=== PATIENT | male | born 1965 | race Caucasian/White ===

== ENCOUNTER 2017-09-06 14:15 | Emergency (ER) | payer OTHER ==
[~2017-09-06] VITALS: Ht 185.4 cm; Wt 98.0 kg
[2017-09-06 14:15] VITALS: TEMP 36.9; Ht 185.4 cm; Wt 98.0 kg
[2017-09-06 14:25] VITALS: O2SAT 96
[2017-09-06] MEDS ORDERED: SODIUM CHLORIDE 0.9% 1000ML 1,000 ML IV STA (14:30)
[2017-09-06] MEDS ORDERED: IBUP-103 PO (14:33)
--- NOTE | 2017-09-06 14:36 | EMERGENCY ROOM VISIT NOTE ---
History First contact with patient: 14:20 Chief Complaint: DIZZY Stated Complaint: DIZZINESS Nursing Triage Summary: Patient arrived via ALS from [facility]. Patient started feeling dizzy yesterday while driving from [place] to [place]. Patient states experienced dizziness when out of car, at rest stops during trip and dizziness got worse with each stop. Patient continued to experience dizziness and lightheadedness last night and into today. Patient c/o associated nausea, sweating, numbness across forehead, and pain in left shoulder/back. History of Present Illness The patient is a 52 year old male who presents to the Emergency Room via ambulance with complaints of "dizziness". The patient states that he was driving yesterday from [facility], and when he sat back in his car seat he felt imbalanced. He did be Driving, and somewhere around [facility] as driving north to this area he states every time he got in and out of his car he felt as if he was becoming more more dizzy. He describes it as almost as if he is going to pass out. He denies any vertigo-like symptoms. He states that he suffered his mother's place last night set of his own, we will Use more and more imbalanced, and unsteady. He states that while ascending one flight of steps he became lightheaded, diaphoretic and very weak. He also feels a numbness sensation by his synagogue region. He denies any unilateral weakness. He denies any chest pain, shortness of breath, history of CVA. He has elevated triglycerides. He denies any medical problems. Review of Systems A complete 10-point Review of Systems was discussed with the patient, with pertinent positives and negatives listed in the History of Present Illness. All remaining Review of Systems questions can be considered negative unless otherwise specified. Past Medical/Surgical History Elevated triglycerides Family History No pertinent. Social History Smoking Status: Never Smoker Patient lives locally. Current/Historical Medications Scheduled Ibuprofen Tab (Advil), 200-600 MG PO Q4H Scheduled PRN Lorazepam (Ativan), 1 TAB PO Q6H PRN for Dizziness or Vertigo Meclizine Hcl (Meclizine Hcl), 1 TAB PO TID PRN for Dizziness or Vertigo Physical Exam Vital Signs Date Time Temp Pulse Resp B/P (MAP) Pulse Ox O2 Delivery O2 Flow Rate FiO2 09/06/17 19:21 71 09/06/17 19:21 72 18 123/84 96 Room Air 09/06/17 18:30 77 18 123/94 96 Room Air 09/06/17 16:23 67 18 121/85 96 Room Air 09/06/17 14:46 74 16 117/78 95 Room Air 78 140/80 84 129/91 09/06/17 14:25 96 Room Air 09/06/17 14:21 71 09/06/17 14:15 36.9 70 18 134/88 96 Room Air Physical Exam VITAL SIGNS - Vital signs and nursing notes were reviewed. Stable. GENERAL -52-year-old male appearing his stated age who is in no acute distress. Communicates well with provider and answers questions appropriately. SKIN - Without rashes. HEAD - NC/AT. EYES - PERRL with EOMI bilaterally. Sclera anicteric. No hyphema. EARS - No deformities of external structures noted on gross examination bilaterally. No pain elicited with palpation of the tragus bilaterally. External auditory canals without discharge or otorrhea. Tympanic membranes pearly cantu without retraction or bulging. No fluid or purulent material visualized behind the TM. Handle of malleus, umbo, cone of light, pars tensa/ flaccid all easily visualized. NOSE - Midline and without cyanosis. No epistaxis or purulent drainage noted. Septum midline without deviation or septal hematoma noted. MOUTH/OROPHARYNX - Without perioral cyanosis. Buccal mucosa pink and moist and without leukoplakia. Tongue midline with equal elevation of palate bilaterally. No tonsillar hypertrophy, erythema, or exudates noted. Fair dentition noted. NECK - Neck with FROM. Supple to palpation. No lymphadenopathy noted. No nuchal rigidity. LUNGS - Chest wall symmetric without accessory muscle use, intercostals retractions, or central cyanosis. Normal vesicular breath sounds CTA B/L. No wheezes, rales, or rhonchi appreciated. CARDIAC - RRR with S1/S2. No murmur, rubs, or gallops appreciated. EXTREMITIES - No clubbing or peripheral cyanosis. No pretibial edema present. + 5/5 strength noted in UE/LE bilaterally. NEUROLOGIC - Cranial nerves II through XII grossly intact. Sensory intact to light touch throughout. PSYCH - A&Ox3 and cooperates fully with examiner. Pt is very pleasant and interacts well with examiner. Medical Decision & Procedures ER Provider Diagnostic Interpretation: ORBIT RADIOGRAPHS 3 VIEWS HISTORY: pre-MRI screening. COMPARISON: None. FINDINGS: There are no radiopaque foreign bodies identified within the orbits. Incidental noted is made of multiple dental amalgams. IMPRESSION: No radiopaque foreign bodies identified within the orbits. Electronically signed by: Yasmani Messina M.D. 09/06/2017 5:22 PM Dictated Date/Time: 09/06/2017 5:22 PM SINGLE VIEW CHEST CLINICAL HISTORY: Dizziness. FINDINGS: An AP, portable, upright chest radiograph is obtained. No prior studies are available for comparison at the time of dictation. The examination is degraded by portable technique and patient rotation. The cardiomediastinal silhouette is unremarkable. There is mild elevation of the right hemidiaphragm. The lungs and pleural spaces are clear. No pneumothorax is seen. The bony thorax is grossly intact. IMPRESSION: No active disease in the chest. Electronically signed by: Wilfred Carlson M.D. 09/06/2017 2:45 PM Dictated Date/Time: 09/06/2017 2:44 PM ULTRASOUND OF THE CAROTID ARTERIES CLINICAL HISTORY: Dizziness, left temporal numbness, weakness. Diaphoresis. COMPARISON STUDY: None. TECHNIQUE: Real-time, grayscale, and color Doppler sonography of the carotid arteries was performed. Imaging reviewed in the transverse and longitudinal planes. NASCET criteria was utilized for stenosis calcification. FINDINGS: There is minimal atherosclerotic plaque present . The peak systolic velocity within the right internal carotid artery is 87 cm/sec. The systolic velocity ratio of right internal to common carotid artery is 0.5. The peak systolic velocity within the left internal carotid artery is 65 cm/sec. The systolic velocity ratio left internal to common carotid artery is 0.6. Antegrade flow is seen in the vertebral arteries. The external carotid arteries are patent. Blood pressure in the right arm measured 122 mm/Hg. Blood pressure in the left arm measured 817 mm/Hg. IMPRESSION: No evidence of hemodynamically significant carotid stenosis. Electronically signed by: Oni Mercer M.D. 09/06/2017 5:21 PM Dictated Date/Time: 09/06/2017 5:20 PM Laboratory Results 09/06/17 14:15 Red Blood Count 5.44, Mean Corpuscular Volume 84.6, Mean Corpuscular Hemoglobin 30.0, Mean Corpuscular Hemoglobin Concent 35.4, Mean Platelet Volume 9.5, Neutrophils (%) (Auto) 63.5, Lymphocytes (%) (Auto) 21.5, Monocytes (%) (Auto) 12.5, Eosinophils (%) (Auto) 1.6, Basophils (%) (Auto) 0.5, Neutrophils # (Auto ) 4.81, Lymphocytes # (Auto) 1.63, Monocytes # (Auto) 0.95, Eosinophils # (Auto ) 0.12, Basophils # (Auto) 0.04 09/06/17 14:15 Test 09/06/17 14:15 09/06/17 16:27 White Blood Count 7.58 K/uL (4.8-10.8) Red Blood Count 5.44 M/uL (4.7-6.1) Hemoglobin 16.3 g/dL (14.0-18.0) Hematocrit 46.0 % (42-52) Mean Corpuscular Volume 84.6 fL (80-100) Mean Corpuscular Hemoglobin 30.0 pg (25-34) Mean Corpuscular Hemoglobin Concent 35.4 g/dl (32-36) Platelet Count 268 K/uL (130-400) Mean Platelet Volume 9.5 fL (7.4-10.4) Neutrophils (%) (Auto) 63.5 % Lymphocytes (%) (Auto) 21.5 % Monocytes (%) (Auto) 12.5 % Eosinophils (%) (Auto) 1.6 % Basophils (%) (Auto) 0.5 % Neutrophils # (Auto) 4.81 K/uL (1.4-6.5) Lymphocytes # (Auto) 1.63 K/uL (1.2-3.4) Monocytes # (Auto) 0.95 K/uL (0.11-0.59) Eosinophils # (Auto) 0.12 K/uL (0-0.5) Basophils # (Auto) 0.04 K/uL (0-0.2) RDW Standard Deviation 37.4 fL (36.4-46.3) RDW Coefficient of Variation 12.4 % (11.5-14.5) Immature Granulocyte % (Auto) 0.4 % Immature Granulocyte # (Auto) 0.03 K/uL (0.00-0.02) Prothrombin Time 10.4 SECONDS (9.0-12.0) Prothromb Time International Ratio 1.0 (0.9-1.1) Activated Partial Thromboplast Time 22.7 SECONDS (21.0-31.0) Partial Thromboplastin Ratio 0.9 Anion Gap 9.0 mmol/L (3-11) Est Creatinine Clear Calc Drug Dose 99.0 ml/min Estimated GFR () 90.2 Estimated GFR (Non- 77.9 BUN/Creatinine Ratio 11.8 (10-20) Calcium Level 9.5 mg/dl (8.5-10.1) Magnesium Level 2.1 mg/dl (1.8-2.4) Total Bilirubin 2.8 mg/dl (0.2-1) Aspartate Amino Transf (AST/SGOT) 19 U/L (15-37) Alanine Aminotransferase (ALT/SGPT) 41 U/L (12-78) Alkaline Phosphatase 79 U/L (45-117) Total Creatine Kinase 92 U/L (39-308) Creatine Kinase MB 1.0 ng/ml (0.5-3.6) Creatine Kinase MB Ratio 1.1 (0-3.0) Troponin I < 0.015 ng/ml (0-0.045) C-Reactive Protein < 0.29 mg/dl (0-0.29) Total Protein 7.4 gm/dl (6.4-8.2) Albumin 4.1 gm/dl (3.4-5.0) Globulin 3.3 gm/dl (2.5-4.0) Albumin/Globulin Ratio 1.2 (0.9-2) Thyroid Stimulating Hormone (TSH) 0.443 uIu/ml (0.300-4.500) Lyme Disease IgG Antibody NEG (NEG) Lyme Disease IgM Antibody NEG (NEG) Urine Color YELLOW Urine Appearance CLEAR (CLEAR) Urine pH 6.5 (4.5-7.5) Urine Specific [place] 1.015 (1.000-1.030) Urine Protein NEG (NEG) Urine Glucose (UA) NEG (NEG) Urine Ketones NEG (NEG) Urine Occult Blood NEG (NEG) Urine Nitrite NEG (NEG) Urine Bilirubin NEG (NEG) Urine Urobilinogen NEG (NEG) Urine Leukocyte Esterase NEG (NEG) Urine Opiates Screen NEG (NEG) Urine Methadone, Qualitative NEG (NEG) Urine Barbiturates NEG (NEG) Urine Phencyclidine (PCP) Level NEG (NEG) Ur Amphetamine/Methamphetamine NEG (NEG) MDMA (Ecstasy) Screen NEG (NEG) Urine Benzodiazepines Screen NEG (NEG) Urine Cocaine Metabolite NEG (NEG) Urine Marijuana (THC) NEG (NEG) Medications Administered Medications (Trade) Dose Ordered Sig/Jeovanny Route Start Time Stop Time Status Last Admin Dose Admin Sodium Chloride 1,000 ml @ 999 mls/hr Q1H1M STAT IV 09/06/17 14:30 09/06/17 15:34 DC 09/06/17 14:40 999 MLS/HR Medical Decision Patient was seen and evaluated as above. He presents to us today with exertional dizziness, and numbness on the left ear/head region. It is worse with movements of the head and neck. Decision was made to obtain IV access, and the above workup was performed. Carotid ultrasound brain MRI were initiated and essentially revealed no abnormalities. CBC reveals NO concerning leukocytosis or anemia. Coag unremarkable. Patient's metabolic panel reveals creatinine at 1.1, and BUN 13. Troponin and C-reactive protein are negative. EKG reveals what is suspected to be a first-degree AV block. TSH unremarkable. Urine is negative. Urine drug screen is negative. Lyme screen is negative. Case was discussed with the attending physician. He was given 1 L of normal saline. We felt pt. should be admitted for further evaluation and management. I then elected to consult the admission team, as I felt the patient would benefit from inpatient management. I spoke with Dr. Gonzalez. He agreed to evaluate the patient. It was identified that he performed a [place]-Hallpike maneuver with some success. He felt pt. could go home but return if persistent or worse. He'll be given a short course of Ativan as well as meclizine. He is to return with worsening. He was educated upon management, educated upon worrisome symptoms which to return, had rushes by discharge, and was discharged home in good condition. He is fo f/u with PCP for ekg, and creatinine/dizziness. In evaluation treatment this patient following differential diagnoses were entertained: CVA, vertigo, dissection, among others. Impression Primary Impression: Vertigo Departure Information Dispostion Home / Self-Care Condition GOOD Prescriptions Meclizine Hcl (MECLIZINE HCL) 25 Mg Tab 1 TAB PO TID Y for Dizziness or Vertigo for 10 Days, #30 TAB Prov: Marquise Suazo PA-C 09/06/17 Lorazepam (ATIVAN) 1 Mg Tab 1 TAB PO Q6H Y for Dizziness or Vertigo, #12 TAB Prov: Marquise Suazo PA-C 09/06/17 Patient Instructions My [facility] Additional Instructions You have been treated in the Emergency Department your dizziness. Laboratory results and imaging studies have ruled out any emergent causes for your dizziness which would warrant admission or surgery. Ativan 1 mg every 6 hours as needed for dizziness. This is a narcotic medication. You cannot drive or consume alcohol while on this medicine. This medicine should only be used for pain that cannot be controlled with over-the- counter pain medicines. Meclizine, 1 tablet every 8 hours as needed for dizziness. As with any trip to the Emergency Department, you should follow-up with your Primary Care Provider from today's visit. Please follow-up for repeat baseline kidney function, as well as for follow-up regarding the dizziness. Please return with any new/concerning symptoms.
--- NOTE | 2017-09-06 14:46 | DIAGNOSTIC IMAGING REPORT ---
SINGLE VIEW CHEST CLINICAL HISTORY: Dizziness. FINDINGS: An AP, portable, upright chest radiograph is obtained. No prior studies are available for comparison at the time of dictation. The examination is degraded by portable technique and patient rotation. The cardiomediastinal silhouette is unremarkable. There is mild elevation of the right hemidiaphragm. The lungs and pleural spaces are clear. No pneumothorax is seen. The bony thorax is grossly intact. IMPRESSION: No active disease in the chest. Electronically signed by: Wilfred Carlson M.D. 09/06/2017 2:45 PM Dictated Date/Time: 09/06/2017 2:44 PM
[2017-09-06 15:00] LABS: BASO % 0.5 %; BASO ABS # 0.04 K/uL (0-0.2); COMPLETE YES; EOS % 1.6 %; IG% 0.4 %; LYMPH % 21.5 %; LYMPH ABS # 1.63 K/uL (1.2-3.4); MEAN CELL VOLUME 84.6 fL (80-100); MEAN CORPUSCULAR HGB CONC 35.4 g/dl (32-36); MEAN PLATELET VOLUME 9.5 fL (7.4-10.4); MONO % 12.5 %; NEUT % 63.5 %; PLATELET COUNT 268 K/uL (130-400); RED BLOOD COUNT 5.44 M/uL (4.7-6.1); WHITE BLOOD COUNT 7.58 K/uL (4.8-10.8)
[2017-09-06 15:02] LABS: PARTIAL THROMBOPLASTIN RATIO 0.9; PROTHROMBIN TIME (PATIENT) 10.4 SECONDS (9.0-12.0)
[2017-09-06 15:14] LABS: ALT/SGPT 41 U/L (12-78); AST/SGOT 19 U/L (15-37); BLOOD UREA NITROGEN 13 mg/dl (7-18); BUN/CREATININE RATIO 11.8 (10-20); CALCIUM 9.5 mg/dl (8.5-10.1); CARBON DIOXIDE 24 mmol/L (21-32); CHLORIDE 108 mmol/L (98-107); GLUCOSE 101 mg/dl (70-99); MAGNESIUM 2.1 mg/dl (1.8-2.4); SODIUM 141 mmol/L (136-145)
[2017-09-06 15:24] LABS: ALB/GLOB RATIO 1.2 (0.9-2); ALKALINE PHOSPHATASE 79 U/L (45-117); C-REACTIVE PROTEIN < 0.29 mg/dl (0-0.29); CKMB/CK RATIO 1.1 (0-3.0); THYROID STIMULATING HORMONE 0.443 uIu/ml (0.300-4.500)
[2017-09-06 15:55] LABS: LYME DISEASE AB IGG NEG (NEG); LYME DISEASE AB IGM NEG (NEG)
--- NOTE | 2017-09-06 17:22 | DIAGNOSTIC IMAGING REPORT ---
ULTRASOUND OF THE CAROTID ARTERIES CLINICAL HISTORY: Dizziness, left temporal numbness, weakness. Diaphoresis. COMPARISON STUDY: None. TECHNIQUE: Real-time, grayscale, and color Doppler sonography of the carotid arteries was performed. Imaging reviewed in the transverse and longitudinal planes. NASCET criteria was utilized for stenosis calcification. FINDINGS: There is minimal atherosclerotic plaque present . The peak systolic velocity within the right internal carotid artery is 87 cm/sec. The systolic velocity ratio of right internal to common carotid artery is 0.5. The peak systolic velocity within the left internal carotid artery is 65 cm/sec. The systolic velocity ratio left internal to common carotid artery is 0.6. Antegrade flow is seen in the vertebral arteries. The external carotid arteries are patent. Blood pressure in the right arm measured 122 mm/Hg. Blood pressure in the left arm measured 817 mm/Hg. IMPRESSION: No evidence of hemodynamically significant carotid stenosis. Electronically signed by: Oni Mercer M.D. 09/06/2017 5:21 PM Dictated Date/Time: 09/06/2017 5:20 PM
[2017-09-06 17:24] LABS: MANUAL MICROSCOPIC REQUIRED? NO; REVIEW REQ? NO; URINE APPEARANCE CLEAR (CLEAR); URINE BILIRUBIN NEG (NEG); URINE COLOR YELLOW; URINE NITRITE NEG (NEG); URINE PH 6.5 (4.5-7.5); URINE SPECIFIC GRAVITY 1.015 (1.000-1.030); UROBILINOGEN NEG (NEG); ZZUR CULT IF INDIC CLEAN CATCH NO
--- NOTE | 2017-09-06 17:24 | DIAGNOSTIC IMAGING REPORT ---
ORBIT RADIOGRAPHS 3 VIEWS HISTORY: pre-MRI screening. COMPARISON: None. FINDINGS: There are no radiopaque foreign bodies identified within the orbits. Incidental noted is made of multiple dental amalgams. IMPRESSION: No radiopaque foreign bodies identified within the orbits. Electronically signed by: Yasmani Messina M.D. 09/06/2017 5:22 PM Dictated Date/Time: 09/06/2017 5:22 PM
[2017-09-06 17:45] LABS: BENZODIAZEPINE, URINE NEG (NEG); COCAINE,URINE NEG (NEG); PHENCYCLIDINE, URINE NEG (NEG)
--- NOTE | 2017-09-06 18:14 | DIAGNOSTIC IMAGING REPORT ---
MRI OF THE BRAIN WITHOUT AND WITH IV CONTRAST CLINICAL HISTORY: Dizziness, diaphoresis, left temporal region numbness. Weakness. COMPARISON STUDY: No previous studies for comparison. TECHNIQUE: MRI of the brain was performed from the vertex to the skull base utilizing various T1 and T2 weighted sequences. Following the IV administration of 9.5 mL of Gadavist contrast, additional enhanced images were obtained. FINDINGS: Sagittal T1, axial diffusion, proton density and T2 weighted axial, coronal FLAIR, and pre and post axial T1-weighted images were acquired. These were supplemented with post gadolinium coronal T1 weighted images. No intra or extra-axial mass lesions are visualized. Axial diffusion-weighted images reveal no evidence of acute or subacute infarction. There is no evidence of ventricular dilatation. Proton density T2-weighted and FLAIR images reveal a few punctate foci of increased FLAIR signal within the white matter. These are of doubtful acute clinical significance. There are no abnormal flow voids. There is no evidence of pathologic enhancement. IMPRESSION: 1. No acute intracranial findings 2. No evidence of acute or subacute infarction 3. No evidence of intracranial mass. Electronically signed by: Oni Mercer M.D. 09/06/2017 6:12 PM Dictated Date/Time: 09/06/2017 6:06 PM
[2017-09-06] MEDS ORDERED: GADAVIST IV PRN (18:15)
[2017-09-06 19:21] VITALS: BP 123/84; PULSE 72; O2SAT 96
--- NOTE | 2017-09-06 19:57 | Medical Consult ---
Consultation Date of Consultation: Sep 06, 2017. Attending Physician: Reason for Consultation: Dizziness History of Present Illness Mr Aranda is a 52 yo otherwise healthy male who presented to the ED earlier with dizziness. He reports he noticed it gradually since yesterday, prior to driving from [place] to [place]. He feels his symptoms are worse with movements of the head laterally but are ok with rest. When he got up, he sat up quickly and that made him feel very uneasy, so he came to the ED. He has mild nausea but has not vomited. He is otherwise healthy and does not take any medications. He does travel a lot and is between jobs. In the ED, his labwork and imaging were all normal. The pt ambulated in the halls and felt well, without any hypoxia on pulse oximetry. Medicine was consulted for potential admission. He currently reports feeling the same. He denies any chest pain, headache, visual changes, shortness of breath, abdominal pain, or leg swelling. Past Medical/Surgical History PMHx: Hyperlipidemia PSHx: None Family History Father 27 years ago from Prostate Ca. Mother alive and well, lives in [place]. One of his grandparents from a stroke. Social History Smoking Status: Never Smoker Alcohol Use: none Drug Use: none Marital Status: single Housing Status: lives alone, lives with family Occupation Status: unemployed (ex-, now between jobs) Allergies Coded Allergies: No Known Allergies (Unverified , 09/06/17) Home Medications None Current Inpatient Medications Current Inpatient Medications Medications (Trade) Dose Ordered Sig/Jeovanny Route Start Time Stop Time Status Last Admin Dose Admin Gadobutrol (Gadavist) 9.5 mmol UD PRN IV 09/06/17 18:15 09/10/17 18:14 Review of Systems See HPI for pertinent positives & negatives. A total of 10 systems reviewed and were otherwise negative. Physical Exam Date Time Temp Pulse Resp B/P (MAP) Pulse Ox O2 Delivery O2 Flow Rate FiO2 09/06/17 19:21 71 09/06/17 19:21 72 18 123/84 96 Room Air 09/06/17 18:30 77 18 123/94 96 Room Air 09/06/17 16:23 67 18 121/85 96 Room Air 09/06/17 14:46 74 16 117/78 95 Room Air 78 140/80 84 129/91 09/06/17 14:25 96 Room Air 09/06/17 14:21 71 09/06/17 14:15 36.9 70 18 134/88 96 Room Air GENERAL: Awake, alert, well appearing, no distress HENT: Normocephalic, atraumatic. Oropharynx unremarkable. EYES: PERRL. Normal conjunctiva. Sclera non-icteric. EOMI. [place]-Hallpike maneuver POSITIVE on Right side. NECK: Supple. No nuchal rigidity. FROM. RESPIRATORY: CTA CARDIAC: RRR. Extremities warm and well perfused. ABDOMEN: Soft, non distended. No tenderness to palpation. No rebound or guarding. No masses. MUSCULOSKELETAL: Unremarkable. EXTREMITIES: No edema. No discoloration. Gross motor strength 5/5 bilaterally. NEURO: Normal sensorium. No sensory or motor deficits noted. Gait normal. Speech normal. Cranial nerves two through 12 intact. SKIN: No rash or jaundice noted. LYMPH: No adenopathy. Laboratory Results Last 24 Hours Test 09/06/17 14:15 09/06/17 16:27 White Blood Count 7.58 K/uL Red Blood Count 5.44 M/uL Hemoglobin 16.3 g/dL Hematocrit 46.0 % Mean Corpuscular Volume 84.6 fL Mean Corpuscular Hemoglobin 30.0 pg Mean Corpuscular Hemoglobin Concent 35.4 g/dl Platelet Count 268 K/uL Mean Platelet Volume 9.5 fL Neutrophils (%) (Auto) 63.5 % Lymphocytes (%) (Auto) 21.5 % Monocytes (%) (Auto) 12.5 % Eosinophils (%) (Auto) 1.6 % Basophils (%) (Auto) 0.5 % Neutrophils # (Auto) 4.81 K/uL Lymphocytes # (Auto) 1.63 K/uL Monocytes # (Auto) 0.95 K/uL Eosinophils # (Auto) 0.12 K/uL Basophils # (Auto) 0.04 K/uL RDW Standard Deviation 37.4 fL RDW Coefficient of Variation 12.4 % Immature Granulocyte % (Auto) 0.4 % Immature Granulocyte # (Auto) 0.03 K/uL Prothrombin Time 10.4 SECONDS Prothromb Time International Ratio 1.0 Activated Partial Thromboplast Time 22.7 SECONDS Partial Thromboplastin Ratio 0.9 Sodium Level 141 mmol/L Potassium Level 4.0 mmol/L Chloride Level 108 mmol/L Carbon Dioxide Level 24 mmol/L Anion Gap 9.0 mmol/L Blood Urea Nitrogen 13 mg/dl Creatinine 1.10 mg/dl Est Creatinine Clear Calc Drug Dose 99.0 ml/min Estimated GFR () 90.2 Estimated GFR (Non- 77.9 BUN/Creatinine Ratio 11.8 Random Glucose 101 mg/dl Calcium Level 9.5 mg/dl Magnesium Level 2.1 mg/dl Total Bilirubin 2.8 mg/dl Aspartate Amino Transf (AST/SGOT) 19 U/L Alanine Aminotransferase (ALT/SGPT) 41 U/L Alkaline Phosphatase 79 U/L Total Creatine Kinase 92 U/L Creatine Kinase MB 1.0 ng/ml Creatine Kinase MB Ratio 1.1 Troponin I < 0.015 ng/ml C-Reactive Protein < 0.29 mg/dl Total Protein 7.4 gm/dl Albumin 4.1 gm/dl Globulin 3.3 gm/dl Albumin/Globulin Ratio 1.2 Thyroid Stimulating Hormone (TSH) 0.443 uIu/ml Lyme Disease IgG Antibody NEG Lyme Disease IgM Antibody NEG Urine Color YELLOW Urine Appearance CLEAR Urine pH 6.5 Urine Specific [place] 1.015 Urine Protein NEG Urine Glucose (UA) NEG Urine Ketones NEG Urine Occult Blood NEG Urine Nitrite NEG Urine Bilirubin NEG Urine Urobilinogen NEG Urine Leukocyte Esterase NEG Urine Opiates Screen NEG Urine Methadone, Qualitative NEG Urine Barbiturates NEG Urine Phencyclidine (PCP) Level NEG Ur Amphetamine/Methamphetamine NEG MDMA (Ecstasy) Screen NEG Urine Benzodiazepines Screen NEG Urine Cocaine Metabolite NEG Urine Marijuana (THC) NEG IMAGING CXR: IMPRESSION: No active disease in the chest. Carotid US: IMPRESSION: No evidence of hemodynamically significant carotid stenosis. BRAIN MRI COMBO: IMPRESSION: 1. No acute intracranial findings 2. No evidence of acute or subacute infarction 3. No evidence of intracranial mass. Assessment & Plan 52 yo otherwise healthy male who presents with dizziness, worse with movements, better at rest and associated nausea - top differential is Benign Paroxysmal Positional Vertigo. His [place]-Hallpike maneuver was positive, so Viry's maneuver was completed twice for the pt and resources for him to do this at home were advised. Recommendations: - Pt to be discharged home to rest, advised to not drive for the next 1-2 days. He reported he is staying with his Mom and feels safe to be home. - Ativan 1mg at night for sleep - Strict instructions for pt to return or seek medical advice if not improving. If he does not improve, another ddx that would be considered is vertebral dissection, and would obtain an MRA of the neck to evaluate. Recommendations were provided to Marquise Suazo PA-C. Resident Physician Supervision Note: I was present with Dr. Eduardo during the history and exam. I discussed the case with the resident and agree with the findings and plan as documented in the note. Any exceptions or clarifications are listed here: 52 y/o M who denies a significant medical history - presenting with persistent dizziness which is triggered by movement - denies visual changes, unilateral weakness, N/V - has some trouble balancing and condition is worsened by driving OE AAO x 3 S1,2 R CTAB NT, ND, BS+ No CCE No deficits on exam - mild nystagmus with Hallpike P: Pt subjected to Viry maneuvers which did lead to slight improvement - MRI negative - no discernible risk factors for CVA He does not need to drive this soy - recommend DC and advise on returning if symptoms do not resolve as likely Dx is BPV Discussed with pt, ER attending, resident Documented By: René Gonzalez Resident Tracking Resident Involvement: Resident Care Provided Care Provided: Adult [facility] Medicine
[2017-09-06] MEDS ORDERED: MECL1TAB42 PO (20:02)
[2017-09-06] MEDS ORDERED: ATV/1 PO (20:02)
[2017-09-06] MEDS ORDERED: ATIVAN 1MG HOMEPACK PO STA (20:02)
[2017-09-06] MEDS ORDERED: ATIVAN 1MG HOMEPACK ONE (20:18)
== END 2017-09-06 20:47 | disposition home or self-care (01) ==
LOC: C.EDC 14:19
DX: R42 Dizziness and giddiness (principal)

== ENCOUNTER 2024-10-03 06:40 | Observation (INO) ==
--- NOTE | 2024-09-05 08:45 | PAT Medication Instructions ---
Medication Instructions Date of Service September 05, 2024 Home Medications cholecalciferol (vitamin D3) 25 mcg (1,000 unit) capsule (Vitamin D3) 5,000 mcg PO 2XWK medium chain triglycerides 7.7 kcal/mL oral oil (MCT Oil) 5 ml PO DAILY PRN melatonin 10 mg tablet 10 - 15 mg PO HS PRN diclofenac sodium 1 % topical gel 4 g topical DAILY PRN krill oil 1,000 mg-om3 130 mg-dha 40 mg-epa 80 [id number]-astax cap (Krill Oil ([place] 3 and 6)) 1 cap PO QAM PRN cyclobenzaprine 5 mg tablet 5 mg PO TID PRN meclizine 12.5 mg tablet 12.5 mg PO TID PRN acetaminophen 500 mg tablet (Tylenol Extra Strength) 1,000 mg PO Q8H PRN cyanocobalamin (vitamin B-12) 500 mcg tablet (Vitamin B-12) 500 mcg PO QPM lidocaine 5 % topical patch 1 patch transdermal QAM PRN ASK your prescriber and surgeon lidocaine 5 % topical patch 1 patch transdermal QAM PRN STOP taking 2 weeks before surgery (or as soon as possible if surgery is within 2 weeks) medium chain triglycerides 7.7 kcal/mL oral oil (MCT Oil) 5 ml PO DAILY PRN krill oil 1,000 mg-om3 130 mg-dha 40 mg-epa 80 [id number]-exh-astax cap (Krill Oil ([place] 3 and 6)) 1 cap PO QAM PRN STOP taking 24 hours before surgery diclofenac sodium 1 % topical gel 4 g topical DAILY PRN DO NOT take the morning of surgery cholecalciferol (vitamin D3) 25 mcg (1,000 unit) capsule (Vitamin D3) 5,000 mcg PO 2XWK Take morning of surgery With a small sip of water, OTHERWISE NOTHING TO EAT OR DRINK AFTER MIDNIGHT: cyclobenzaprine 5 mg tablet 5 mg PO TID PRN(if needed) meclizine 12.5 mg tablet 12.5 mg PO TID PRN(if needed) acetaminophen 500 mg tablet (Tylenol Extra Strength) 1,000 mg PO Q8H PRN(if needed) Take evening before surgery melatonin 10 mg tablet 10 - 15 mg PO HS PRN(if needed) cyclobenzaprine 5 mg tablet 5 mg PO TID PRN(if needed) meclizine 12.5 mg tablet 12.5 mg PO TID PRN(if needed) acetaminophen 500 mg tablet (Tylenol Extra Strength) 1,000 mg PO Q8H PRN(if needed) cyanocobalamin (vitamin B-12) 500 mcg tablet (Vitamin B-12) 500 mcg PO QPM Other Notes If you have any questions please call us at [phone] or [phone] or [phone] or [phone]
--- NOTE | 2024-09-12 09:26 | Anesthesiology Consultation ---
Date of Service September 12, 2024 Assessment & Plan (1) Encounter for pre-operative examination: - sean-operative/anesthesia anxiety regarding claustrophobia and mask being placed over face. We had a detailed discussion regarding sean-operative approach from anesthesia standpoint and he indicated comfort with discussion and plan. He states is meeting with the surgeon's office again before surgery to discuss questions on specific surgical approach/post-op. Case discussed with Dr. Haddad who advised patient can be put asleep prior to positioning for surgery and to notify OR. OR made aware. - potential difficult intubation due to cervical spine history. - total time in direct patient care > 40 minutes. Chart Review Chart Review: Acceptable Risk for Surgery and Patient seen in Pre Admission Testing Teaching & Discussion Pre-Anesthesia Teaching/Discussion Notes: Instructed NPO after midnight before surgery, except medications with 15 cc of water. Medication instructions provi ded according to the PAT guidelines. History Surgery Operation Date: 10/03/24 08:15 Proposed Procedures p Robotic Assisted Laparoscopic Radical Prostatectomy, Possible Open, Possible Pelvic Lymph Node Dissection - oTny Rodriguez DO Height/Weight Height: 6 ft 1 in Weight: 98.6 kg Allergies Allergy/AdvReac Type Severity Reaction Status Date / Time No Known Allergies Allergy Verified 09/04/24 10:46 Medications Home Medications Medication Instructions Recorded Confirmed Last Taken cholecalciferol (vitamin D3) 25 5,000 mcg PO 2XWK 11/18/21 09/04/24 08/20/23 mcg (1,000 unit) capsule (Vitamin D3) medium chain triglycerides 7.7 5 ml PO DAILY PRN prn 06/07/23 09/04/24 08/20/23 kcal/mL oral oil (MCT Oil) melatonin 10 mg tablet 10 - 15 mg PO HS PRN Sleep 06/07/23 09/04/24 08/20/23 diclofenac sodium 1 % topical gel 4 g topical DAILY PRN prn 08/21/23 09/04/24 08/20/23 krill oil 1,000 mg-om3 130 mg-dha 1 cap PO QAM PRN prn 08/21/23 09/04/24 08/20/23 40 mg-epa 80 [id number]-[id number]-astax cap (Krill Oil ([place] 3 and 6)) cyclobenzaprine 5 mg tablet 5 mg PO TID PRN prn 03/13/24 09/04/24 Unknown meclizine 12.5 mg tablet 12.5 mg PO TID PRN prn 07/09/24 09/04/24 Unknown acetaminophen 500 mg tablet 1,000 mg PO Q8H PRN prn 09/04/24 09/04/24 Unknown (Tylenol Extra Strength) cyanocobalamin (vitamin B-12) 500 500 mcg PO QPM 09/04/24 09/04/24 Unknown mcg tablet (Vitamin B-12) lidocaine 5 % topical patch 1 patch transdermal QAM PRN prn 09/04/24 09/04/24 Unknown Past Medical History Medical History (Updated 09/12/24 @ 10:31 by Devika Bliss PA-C) Adjustment disorder Anxiety patient has anxiety regarding a mask being placed over face for anesthesia, being restrained-states may need a few pauses to take a brief pause throughout prep phase BPPV (benign paroxysmal positional vertigo) controlled, stable per pt Cervical radiculopathy Fingertip amputation partial right 2nd digit First degree AV block chronic-pt reports negative stress testing years ago Herniated cervical disc Kidney stones current, no issues, found incidently on ultrasound Prostate cancer Renal cyst referred to Nephrology, no longer following Sleep apnea no device, not formally diagnosed, feels he does have sleep apnea Patient denies h/o stroke, seizures, heart attack, heart failure, DM, HTN, blood clots/DVTs or blood transfusions. Exercise / Class Metabolic Activity II 4-5 Yardwork/Stairs/Walk up hill (denies chest discomfort or shortness of breath with one flight of stairs) Past Family History Family History Mother No problems noted. Father Prostate cancer Brother ALS (amyotrophic lateral sclerosis) Brother No problems noted. Brother No problems noted. Sister No problems noted. Sister No problems noted. Past Surgical History Surgical History H/O prostate biopsy 05/28/24 Dr. Rodriguez History of colonoscopy Past Anesthesia History No Hx of Anesthesia Complications and No Family Hx of Anesthesia Complications History of PONV No Hx of PONV and No Hx of Motion Sickness Social History Smoking Status: Never smoker Do You Dip or Chew Tobacco: No Hx Alcohol Use: No Hx Substance Use: No substance use type: does not use Review of Systems Patient denies chest pain, shortness of breath, dyspnea on exertion, reflux, fever, chills, cough, wheezing, or palpitations. Physical Exam Vital Signs Vitals BP 124/84 P 74 TEMP 98.4 SP02 97% on RA RESP 18 Physical Patient resting comfortably in chair in no acute distress, alert and oriented, responding appropriately throughout visit Full cervical extension range of motion without pain TMD 3.5 finger breadths Mallampati Score 2 Dentition: lower left back implant and multiple caps/crowns, denies chipped or loose teeth, or bridges Lungs: normal respiratory effort. Good air movement, clear throughout to auscultation, no adventitious breath sounds Cardiac: regular rate and rhythm, no murmurs noted Carotid arteries: negative bruit bilat Lab Results Anesthesia Preop Results Results Anesthesia Widget: WBC 6.08 K/ul (4.8-10.8) 09/12/24 Hgb 15.5 g/dl (14.0-18.0) 09/12/24 Hct 44.0 % (42.0-52.0) 09/12/24 Plt 291 K/uL (130-400) 09/12/24 Na 141 mmol/L (136-145) 09/12/24 K 4.8 mmol/L (3.5-5.1) 09/12/24 Cl 107 mmol/L (98-107) 09/12/24 CO2 30 mmol/L (21-32) 09/12/24 BUN 10 mg/dl (6-23) 09/12/24 Creat 1.03 mg/dl (0.6-1.4) 09/12/24 Glucose Level 98 mg/dl (70-99(Fasting)) 09/12/24 Testing Electrocardiogram Date: 09/12/24 NSR, rate 70 bpm Rightward axis Chest X-Ray Date: 09/12/24 No acute chest disease. Other Testing Head and neck CTA 11/18/21 Unremarkable CTA of the head and neck
[2024-10-03] MEDS ORDERED: MIDAZOLAM HCL 1 MG/ML 2ML VIAL ONE (07:18)
[2024-10-03] MEDS ORDERED: LIDOCAINE 2% 2 ML VIAL/AMP(20MG/ML) INFIL ONE ×2 (07:18→07:19)
[2024-10-03] MEDS ORDERED: ONDANSETRON INJ 2 MG/ML 2 ML VIAL ONE (07:18)
[2024-10-03] MEDS ORDERED: PROPOFOL IV EMULSION 10 MG/ML 20 ML VIAL IV ONE (07:18)
[2024-10-03] MEDS ORDERED: fentaNYL citrate PF 100 MCG/2 ML VIAL ONE ×2 (07:18→08:48)
[2024-10-03] MEDS ORDERED: DEXAMETHASONE SOD INJ 4 MG/ML VIAL ONE (07:18)
[2024-10-03] MEDS ORDERED: ROCURONIUM BROMIDE 10 MG/ML 5 ML VIAL IV ONE ×11 (07:22→11:18)
--- NOTE | 2024-10-03 07:22 | History & Physical Bridge Note ---
Date of Service October 03, 2024 History & Physical Bridge Note I have examined the patient, reviewed the History & Physical and in the interval since the performance of the History & Physical I have noted the following changes of clinical significance: no changes noted
[2024-10-03] MEDS: LACTATED RINGER'S 1,000 ML IV SCH (07:41)
[2024-10-03] MEDS: HEPARIN SOD 5,000 UNIT/0.5 ML VIAL SC SCH (07:41)
[2024-10-03] MEDS: LR 15ML/HR IV SCH (07:41)
[2024-10-03] MEDS ORDERED: ONDANSETRON INJ 2 MG/ML 2 ML VIAL IV PRN ×2 (08:00→13:41)
[2024-10-03] MEDS ORDERED: ATROPINE SULFATE 0.1 MG/ML 10ML SYR IV PRN (08:00)
[2024-10-03] MEDS ORDERED: HYDROmorphone INJ 1 MG/ML SYRINGE IV PRN (08:00)
[2024-10-03] MEDS ORDERED: ePHEDrine sulfate 50 MG/ML AMP IV PRN (08:00)
[2024-10-03] MEDS: ceFAZolin 2000MG 2,000 MG/15 ML SYR IV SCH ×2 (08:30→16:44)
[2024-10-03] MEDS ORDERED: SUGAMMADEX SODIUM 200 MG/2 ML VIAL IV ONE (08:49)
--- OUTSIDE RECORDS SUMMARY | 2024-10-03 09:49 | External Medical Summary | Continuity of Care Document ---
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 Name Role Phone Coretta Chicas Primary Care Physician [phone] Encounter [facility] [id number] Date(s): 09/20/24 - 09/20/[place] [facility] [place] [facility] [address] [address] [phone] Encounter Diagnosis Body mass index [BMI] 27.0-27.9, adult(Discharge Diagnosis) - 09/20/24 Major depressive disorder, single episode, severe(Discharge Diagnosis) - 09/20/24 Neck pain(Discharge Diagnosis) - 09/20/24 Metabolic dysfunction-associated steatotic liver disease (MASLD)(Discharge Diagnosis) - 09/20/24 Prostate cancer(Discharge Diagnosis) - 09/20/24 Discharge Disposition: Home or Self Care Attending Physician: DO Chicas Stephanie Marie Allergies, Adverse Reactions, Alerts No Known Allergies Assessment and Plan Extracted from: Title:Office Visit Note - APSO Author:DO Chicas Stephanie Marie Date:09/20/24 1.Major depressive disorde r, single episode, severe Chronic condition,unstable Goal: Improvement/resolution Plan: Patient withsignificant history of MDD, severe. We have spent significant time during each visit over the past year discussingthis concern. We again today discussed his mood, loneliness, isolation, anddepression. He notes significant difficulty with social connectednessand reaching out to others. He does report thatall he wants is"family, friends, laughs, and hugs." We discussed again the potential for behavioral health therapybut patient admits that he has not reached outto investigatetherapy options. We also discussed potential for medication therapy (e.g. Wellbutrin or BuSpar) but patient states that he does not want to initiate medication therapy unlesshe feels that he absolutely needs it anduntil after the upcoming prostate surgery.Will continue routine follow-up with patient in 1 month. 2.Neck pain Chronic condition, unstable Goal: Resolution Plan: Patient reports worsening of neck painwith increasing anxiety/depressionespecially inlight of upcoming prostate surgery. He does continue to use Flexerilas needed at nighttime for muscle spasm and notes benefit with the Flexeril. We have discussed in the pasttrying to stop Flexeril usebutpatient will continue for now. I have sent in a prescription refill for 90 tablets. Follow-up in 1 month. 3.Metabolic dysfunction-associated steatotic liver disease (MASLD) Chronic condition, unstable Goal: Continue to monitor Plan: Patient established with GI. Continuefollow-up and management per GI 4.Prostate cancer Active problem Goal: Resolution Plan: Patient scheduled for radical prostatectomyin approximately 2 weeks. Continue follow-upand management per urology. Follow-up in 1 month. Inclusive of time spent reviewing the medical record, [id number] time with the patient, and time spent in documentation, the total time spent on this encounter today was 42 minutes. Medications cyclobenzaprine 5 mg oral tablet Start: 09/20/24 9:51:00 AM EDT, 1 tab, PO, qhs, Disp# 90 tab, Refills: 0, PRN: NEEDED FOR SPASM,Pharmacy: [facility]/pharmacy #[id number] Start Date: 09/20/24 Status: Ordered diclofenac 1% topical gel Start: 11/16/23 1:05:00 PM EST, 1 appl, topical, qid Start Date: 11/16/23 Status: Ordered gabapentin Start: 11/16/23 1:02:00 PM EST Start Date: 11/16/23 Status: Ordered meclizine 25 mg oral tablet Start: 11/16/23 1:06:00 PM EST, 1 tab, PO, tid, PRN: as needed for dizziness Start Date: 11/16/23 Status: Ordered Tylenol 500 mg oral tablet Start: 11/16/23 1:04:00 PM EST, 2 tab, PO, q6h, PRN: as needed for fever Start Date: 11/16/23 Status: Ordered Mental Status 09/20/24 Barriers to Learning one year None evide nt Mandatory Health Literacy Documentation Yes Health Literacy Communication Barriers N ever Primary Language Lithuanian Problem List Condition Confirmation Course Effective Dates Status H ealth Status Informant Renal cyst Confirmed Active Dizziness Confirmed Active Transaminitis Confirmed Active Neck pain Confirmed Active Elevated PSA Confirmed Active Major depressive disorder, single episode, severe Confirmed Active Metabolic dysfunction-associat ed steatotic liver disease (MASLD) Confirmed Active Diagnosis Diagnosis Type Effective Dates Health Status Clinical Service Informant Body mass index [BMI] 27.0-27.9, adult Discharge Diagnosis 09/20/24 Non-Specified Metabolic dysfunction-assoc iated steatotic liver disease (MASLD) Discharge Diagnosis 09/20/24 Non-Specified Prostate cancer Discharge Diagnosis 09/20/24 Non-Specified Major depressive disorder, single episode, severe Discharge Diagnosis 09/20/24 Non-Specified Neck pain Discharge Diagnosis 09/20/24 Non-Specified Procedures Procedure Date Related Diagnosis Body Site Status Prostate biopsy sample 04/2024 Co mpleted Ultrasound of abdomen, right upper quadrant and epigastrium 1 02/14/24 Compl eted 1FINDINGS: The liver is diffusely echogenic in appearance with poor ultrasound penetration, with normal contour, which is consistent with fatty infiltration. No hepatic masses are seen. Gallbladder and biliary tree: Linear hyperechoic foci with posterior shadowing are identified layering dependently within the gallbladder, which are consistent with gallstones. The gallbladder wall is not thickened. There is no pericholecystic fluid present. Common bile duct diameter is 0.5 cm. The right kidney measures 12.4 cm in length. The left kidney measures 11.2 cm in length. Multiple cysts are seen bilaterally measuring up to 58 mm. Spleen: Spleen measures 9.9 cm in length. Unremarkable. The pancreas was nonvisualized due to overlying bowel gas. The aorta and IVC are unremarkable. No free fluid was seen in the abdomen. IMPRESSION: 1. Hepatic steatosis. 2. Cholelithiasis without cholecystitis. 3. Renal cysts are seen. Vital Signs Most recent to oldest [Reference Range]: 1 Height 187.5 cm (09/20/24 9:03 AM) Patient Weight 97 kg (09/20/24 9:03 AM) Body Mass Index 27.59 kg/m2 (09/20/24 9:03 AM) Temperature [36.5-37.9 DegC] 37.1 DegC (10/25/24 9:03 AM) Heart Rate 65 bpm (09/20/24 9:03 AM) Respiratory Rate 16 br/min (09/20/24 9:03 AM) Social History Social History Type Response Smoking Status Never smoked cigaret alexx Sex Male Sex Representation Male (finding) FCM Outpt Note * DO Juan Francisco Coretta Hamilton: PERFORM Event Display: FCM Outpt Note Authored Date: Assessment/Plan 1.Major depressive disorder, single episode, severe Chronic condition,unstable Goal: Improvement/resolution Plan: Patient withsignificant history of MDD, severe. We have spent significant time during each visit over the past year discussingthis concern. We again today discussed his mood, loneliness, isolation, anddepression. He notes significant difficulty with social connectednessand reaching out to others. He does report thatall he wants is"family, friends, laughs, and hugs." Wediscussed again the potential for behavioral health therapybut patient admits that he has not reached outto investigatetherapy options. We also discussed potential for medication therapy (e.g. Wellbutrin or BuSpar) but patient states that he does not want to initiate medication therapy unles she feels that he absolutely needs it anduntil after the upcoming prostate surgery.Will continue routine follow-up with patient in 1 month. 2.Neck pain Chronic condition, unstable Goal: Resolution Plan: Patient reports worsening of neck painwith increasing anxiety/depressionespecially inlight of upcoming prostate surgery. He does continue to use Flexerilas needed at nighttime for muscle spasm and notes benefit with the Flexeril. We have discussed in the pasttrying to stop Flexeril usebutpatient will continue for now. I have sent in a prescription refill for 90 tablets. Follow-up in 1 month. 3.Metabolic dysfunction-associated steatotic liver disease (MASLD) Chronic condition, unstable Goal: Continue to monitor Plan: Patient established with GI. Continuefollow-up and management per GI 4.Prostate cancer Active problem Goal: Resolution Plan: Patient scheduled for radical prostatectomyin approximately 2 weeks. Continue follow-upand management per urology. Follow-up in 1 month. Inclusive of time spent reviewing the medical record, [id number] time with the patient, and time spent in documentation, the total time spent on this encounter today was 42 minutes. Chief Complaint F/U for prostatectomy in Nov History of Present Illness Rylee is a 59-year-old male presenting to the office for 3monthfollow-up. Prostate cancer: diagnosed May 2024. Early stage. Has reviewedoptions including active surveillance,radiation.or prostatectomy.He is planning for prostatectomy next month. MASLD: established with GI. MDD: Struggling with sleep 2-4 days per weekof very restless sleep. Very stressed, "mental anguish" about upcoming prostate surgery. Continued "near-zero support in life." Has thought about supportgroups. Has considered exploring services but has not reached out/formally investigated services or therapy. Notes that his daughteris currently doing study abroad in [facility]. Wants "family, friends, laughs, and hugs." Neck pain: persistent, worsening with stress re: upcoming surgery. Request refill for Flexeril. Physical Exam Vitals & Measurements T:37.1C HR:65(Monitored) RR:16 SpO2:97% HT:187.5cm WT:97.000kg(Dosing) WT:97kg BMI:27.59 PHQ2 Data(Data Documented on:09/20/2024 09:05) Emotional health assessment POSITIVE PHQ-9 Data(Data Documented on:09/20/2024 09:08) PHQ-9 Severity Score:24 Thoughts that you would be better off or of hurting yourself in some way?Not at All Depression Risk:Elevated General Anxiety Disorder Screening: KARLA-7 Score:20 KARLA-7 Problem Severity:Extremely Difficult GENERAL: Well developed and well nourished. Vital signs reviewed as above. EYES: Anicteric sclerae. HENT: Moist mucous membranes. RESPIRATORY: Unlabored respirations. No conversational dyspnea. EXTREMITIES: No gross deformities. SKIN: Warm, dry. NEUROLOGIC: Alert and oriented. Normal speech. No gross focal neurological deficits. PSYCHIATRIC: Cooperative. Very tearful throughout appointment. Problem List/Past Medical History Ongoing Dizziness Elevated PSA Major depressive disorder, single episode, severe Metabolic dysfunction-associated steatotic liver disease (MASLD) Neck pain Renal cyst Transaminitis Procedure/Surgical History Prostate biopsy sample| Service Date: 04/2024Ultrasound of abdomen, right upper quadrant and epigastrium| Service Date: 02/14/2024 Medications acetaminophen(Tylenol 500 mg oral tablet), 1000 mg= 2 tab, PO, q6h, PRN cyclobenzaprine(cyclobenzaprine 5 mg oral tablet), 1 tab, PO, qhs, PRN diclofenac topical(diclofenac 1% topical gel), 1 appl, topical, qid gabapentin meclizine(meclizine 25 mg oral tablet), 25 mg= 1 tab, PO, tid, PRN Allergies NKA No Known Medication Allergies Social History Smoking Status Never smoked cigarettes Family History Family history is unknown Recommendations Health Maintenance Pending(in the next year) OverDue Adult Influenza Vaccine due05/26/24and every 1year Due Adult COVID-19 Vaccination due09/20/24Unknown Frequency Adult Social Determinants of Health Screening due09/20/24Unknown Frequency Adult Tdap/Td Vaccine due09/20/24Unknown Frequency Colorectal Cancer Screening due09/20/24Unknown Frequency Pneumococcal Vaccine Adults and Adolescents with Chronic Illness due09/20/24One-time only Shingles Vaccine due09/20/24One-time only Satisfied(in the past 1 year) Satisfied Body Mass Index on09/20/24.Satisfied by YASIR Claire Kathryn Depression Follow Up Plan on09/20/24.Satisfied by YASIR Claire Kathryn Hepatitis C Screening on12/15/23.Satisfied by Contributor_system, [id number] Lipid Screening on11/16/23.Satisfied by Contributor_system, [email or web address] Electronic Signature on File Electronically Reviewed/Signed by: Coretta Chicas DO Author Signature Dt/Tm:09/20/2024 10:40 AM Department of Family Medicine [facility] Patient Care team information Care Team Personnel Name: DO Chicas Stephanie Marie Position: Physician - Family Med Member Role: Primary Care Provider Address: [address] [place] [address]
[2024-10-03] MEDS: SURGICEL ABSORB HEMOSTAT 2IN X 14IN TOP ONE (10:05)
[2024-10-03] MEDS ORDERED: PHENYLEPHRINE 100MCG/ML 5ML SYR ONE (10:39)
[2024-10-03] MEDS ORDERED: MoRPHine SULFATE 2 MG/ML CARP ONE (10:40)
[2024-10-03] MEDS ORDERED: KETOROLAC 30 MG/ML VIAL ONE (10:41)
[2024-10-03] MEDS: FLOSEAL HEMOSTATIC MATRIX 10ML TOP ONE (11:43)
[2024-10-03] MEDS: BUPIVACAINE 0.5 % 5 MG/1 ML MPF 30ML VIAL ONE (11:43)
--- NOTE | 2024-10-03 12:03 | Operative Report ---
PG Post Operative Report Pre & Post Diagnosis Operation Date: 10/03/24 08:15 Pre-Op Diagnosis: Prostate Cancer Post-Op Diagnosis: Prostate Cancer I identified the patient and participated in the time-out.: Yes Procedure Operation Date: 10/03/24 08:15 Actual Procedures p Robotic Assisted Laparoscopic Radical Retropubic Prostatectomy, Pelvic Lymph Node Dissection (Not Applicable) - Tony Rodriguez DO Surgeon Tony Rodriguez, II, DO Ambulatory Services Representative Jhonatan BREWER Estimated Blood Loss 300 Findings Consistent with Post-Op Diagnosis Moderate prostate. Mild adhesions of the sigmoid colon. Accessory vessel on the left lateral pelvic side wall ligated. Specimens Prostate and Seminal Vesicle Left Pelvic Lymph Nodes Right Pelvic Lymph Nodes. Drains 18 Fr Silicon Huffman catheter. Anesthesia Type General Complications none Disposition Disposition: Recovery Room Indications Patient with Prostate Cancer. Risk and benefits were discussed at length. Liss ent elected to undergo robotic assisted laparoscopic Radical Prostatectomy. Description of Procedure The patient was brought to the operative suite and placed under general endotracheal intubation anesthesia in the supine position. The patient was transferred to the dorsal lithotomy position. At this point, the patient prepped and draped in the usual sterile fashion and a timeout was completed. Preoperative antibiotics of Ancef 2 grams had been given. SIGIFREDO's and SCD's were placed on the patient's lower extremities. A catheter was placed using sterile technique. With the time out completed the patient was placed into Trendelenburg and the skin at the umbilicus was anesthetized. A small incision was made superior to the umbilicus. A Varess Needle was placed and confirmed to be in the abdominal cavity. Water drop test passed. The Abdominal cavity was insufflated to 15 mmHG. The camera port was then placed. A laparoscopic camera was placed into the port and the abdominal cavity inspected. No concerning features were noted. At this point, the skin was marked for port placement and 8mm working ports were placed. The skin was anesthetized down to fascia and an approx 1cm incision was made to place the 3 x 8mm ports. A 12 mm and 5 mm personalized living assistant ports were also placed in similar fashion under direct visualization. The patient was transferred into steep Trendelenburg position and the legs lowered. The robot was positioned and docked. The camera was placed and all trocars were positioned under direct visualization. Jhonatan BREWER was integral in port placement, camera utilization, and docking procedure. She remained in sterile attire and then proceeded to assist the remainder of the case. At this point, I transitioned to the robotic console. At this point, the sigmoid colon was mobilized superiorly and the pelvis assessed. Adhesions were freed to allow mobilization. The peritoneum in the midline was opened between rectum and bladder and the vas deferens and seminal vesicles exposed. These were dissected with blunt technique. The vas was clipped and cut and mobilized. Cautery was used to assist dissection avoiding the tissue posteriorly near the rectum. The tissues lateral to the seminal vesicles were clipped with a hemolock and all bleeding controlled. This was taken as inferior as possible from this position. The medial umbilical ligaments were then identified and the peritoneum directly lateral on the right followed by the left was opened. The tissues were bluntly dissected to free the bladder's lateral attachments. This was taken down to the pubic bone and exposed the endopelvic fascia bilaterally. The medial ligaments were cut and the bladder dropped. The tissues was dissected anterior to the prostate. The endopelvic fascia on each side was then opened and the lateral edges of the prostate dissected. A large accessory vessel was noted on the pelvic side wall appearing to enter into the region of the prostate. This vessel was directly in the area of dissection and did not appear to be salvagable to allow dissection of the prostate. A mild amount of bleeding was noted to be coming from small branches with dissection of the vessel. A this point, hemolock clips were selected and the vessel was ligated. This was divided and further dissection was then possible to further free the lateral edges of the prostate. No accessory vessel was noted on the right. The right and left pelvic lymph tissue was identified in relation to the iliac vessels. Distal dissection was taken to the Node of [place]. Inferiorly the obtorator vessels and nerve were identified. Lymphatic tissue within the surround fat tissue was dissected. This packet of tissues were sent for pathol ogic analysis and lymph node assessment. This was done for each separate side. Hemostatic agent was placed on the exposed vessels. The Dorsal venous complex of the prostate was dissected and assessed. A 2-0 PDS suture was used to ligate the vessels. A suspension stitch was used and clipped. Electrocautery was used to cut the anterior attachments, the puboprostatic ligaments, and venous tissues. The huffman was manipulated to better visual the bladder neck and dissection was taken using electrocautery. The bladder neck was opened and dissected from the prostate. The UO were identifed and dissection taken in a direction to avoid each side. The vas stump and seminal vesicles were exposed and used to assist in traction to dissect. The prostatic pedicles were better exposed. The posterior prostate was dissected. An attempt was made to limit cautery and utilize cold dissection of the lateral posterior prostate to attempt preservation of the neurovascular bundle bilaterally. Hemolock clips were utilized to clip the prostatic pedicle bilaterally. The dissection was taken to the apex of the prostate. The anterior prostate was released and the urethra exposed. Cold cutting was used to open the anterior portion and expose the catheter. This was removed and the urethra incised. The prostate was further freed and grasped and removed from the field. The entire dissection bed was inspected.Hemostatic agent was placed in the region. No areas of injury or bleeding was noted. Care was taken to examine the perirectal tissues. A probe was placed and no injuries or other issues were observed. A 2-0 PDS suture was used to approximate the bladder neck and the periurethral tissue. The bladder neck and urethra were then approximated with a running barbed suture starting at the 5 o'clock position and moving to the 12 o'clock on each side. This was tied at the anterior portion. A leak test was completed without any evidence of issues. The entire dissection space was inspected one final time. No bleeding or injuries or areas of concern were noted. No tumor or other concerning features were noted. At this point, the robot was undocked and moved away from the patient. The patient was taken out of Trendelenberg. The port sites were all assessed laparoscopically. The endoscopic bag was moved into the midline port. The 12 mm port site was closed with the Glenn Treadwell device. The other ports were assessed and no issues observed. The umbilical incision was opened further exposing fascia which was then opened in order to removed the prostate in the bag. The prostate was removed. A running PDS suture was used to close fascia. The skin at each site was closed a surgical stapler. The area was cleaned and bandages placed on each incision. The patient was cleaned and bandaged, aroused from anesthesia, and transferred to the pacu in stable condition having tolerated the procedure well with no complications. I was present and participated in all aspects of the procedure. Jhonatan BREWER was critical in the portions as mentioned above. Will plan to observe postoperatively and monitor. Huffman to be remain in place until followup. Followup for catheter and staple removal in approx 10 days. Will discuss pathology at followup. I attest to the content of the Intraoperative Record and any orders documented therein. Any exceptions are noted below.
--- NOTE | 2024-10-03 12:07 | XRay Report ---
XR pelvis 1-2V routine CLINICAL HISTORY: R/O FB SCREW COMPARISON: None FINDINGS: Skin ferny are noted. There are no unexpected radiopaque foreign bodies within the pelvi s or visualized portions of the abdomen. Pelvic calcifications represent phleboliths. IMPRESSION: No unexpected radiopaque foreign bodies within the pelvis or visualized portions of the a bdomen. ACT 112: Negative or not required by law. Electronically signed by: Yasmani Messina M.D. 10/03/2024 12:04 PM
[2024-10-03 12:38] LABS: Hematocrit (blood only) 39.8 % (42.0-52.0); Hemoglobin 13.9 g/dl (14.0-18.0); Mean Corpuscular Hemoglobin 30.3 pg (25.0-34.0); Mean Corpuscular Hgb Conc 34.9 g/dL (32.0-36.0); Mean Corpuscular Volume 86.9 fL (80.0-100.0); Mean Platelet Volume 9.3 fL (9.4-12.4); Platelet Count 327 K/uL (130-400); RDW Coefficient of Variation 12.1 % (11.5-14.5); RDW Standard Deviation 38.6 fL (36.4-46.3); Red Blood Count 4.58 M/uL (4.70-6.10); White Blood Count 19.65 K/ul (4.8-10.8)
[2024-10-03] MEDS: fentaNYL citrate PF 100 MCG/2 ML VIAL IV PRN (12:38)
[2024-10-03 12:51] LABS: BUN Creatinine Ratio 17.2 (10-20); Creatinine Clr Calc Pharmacy 77.7 ml/min
[2024-10-03 13:10] LABS: Basophils # (auto) 0.07 K/uL (0.00-0.20); Basophils % (auto) 0.4 %; Eosinophils # (auto) 0.02 K/uL (0.00-0.50); Eosinophils % (auto) 0.1 %; Immature Granulocytes # (auto) 0.11 K/uL (0.01-0.20); Immature Granulocytes % (auto) 0.6 %; Lymphocytes # (auto) 1.02 K/uL (1.20-3.40); Lymphocytes % (auto) 5.2 %; Monocytes # (auto) 0.45 K/uL (0.11-0.59); Monocytes % (auto) 2.3 %; Neutrophils # (auto) 17.98 K/uL (1.40-6.50); Neutrophils % (auto) 91.4 %
--- NOTE | 2024-10-03 13:14 | Anesthesiology Progress Note ---
Date of Service October 03, 2024 Anesthesia Post Procedure Vital Signs Vital Signs: Temp Pulse Resp BP Pulse Ox O2 Del Method O2 Flow Rate 10/03/24 13:00 36.5 C 68 16 113/76 96 Nasal Cannula 2 10/03/24 12:50 71 15 112/62 98 Nasal Cannula 2 10/03/24 12:40 72 18 106/73 93 Room Air 10/03/24 12:30 70 21 106/75 96 Room Air 10/03/24 12:20 76 18 110/71 93 Room Air 10/03/24 12:10 36.2 C L 73 23 121/79 94 Room Air 10/03/24 07:25 36.6 C 78 20 131/87 99 Room Air Pain Intensity Penis: Pain Intensity: 8 Abdomen: Pain Intensity: 4 Transfer of Care Handoff Completed per policy Notes Mental Status: alert / awake / arousable Patient Amnestic to Procedure: Yes Nausea / Vomiting: adequately controlled Pain: adequately controlled Airway Patency, RR, SpO2: stable & adequate BP & HR: stable & adequate Hydration State: stable & adequate Anesthetic Complications: no major complications apparent and Pt Satisfied with anesthetic care
[2024-10-03] MEDS ORDERED: MoRPHine SULFATE 2 MG/ML CARP IV PRN (13:41)
[2024-10-03] MEDS: oxyCODONE HCL IR 5 MG TAB (IMMEDIATE RELEASE) PO PRN (14:49)
[2024-10-03] MEDS: ACETAMINOPHEN 325 MG TAB PO SCH (14:50)
[2024-10-03] MEDS: SODIUM CHLORIDE 0.9% 1,000 ML IV SCH (15:47)
[2024-10-03] MEDS: HEPARIN SOD 5,000 UNIT/0.5 ML VIAL SQ SCH (20:13)
[2024-10-03] MEDS: DOCUSATE SODIUM 100 MG CAP PO SCH (20:13)
[2024-10-03] MEDS: CYANOCOBALAMIN (B-12) 500 MCG TABLET PO SCH (20:13)
[2024-10-04 04:03] VITALS: RESP 16
[2024-10-04 06:21] LABS: BUN Creatinine Ratio 18.8 (10-20); Calcium 8.3 mg/dl (8.6-10.3); Creatinine Clr Calc Pharmacy 98.7 ml/min; Potassium 4.3 mmol/L (3.5-5.1)
[2024-10-04 07:06] LABS: Basophils # (auto) 0.01 K/uL (0.00-0.20); Basophils % (auto) 0.1 %; Hematocrit (blood only) 30.9 % (42.0-52.0); Hemoglobin 10.8 g/dl (14.0-18.0); Immature Granulocytes # (auto) 0.07 K/uL (0.01-0.20); Immature Granulocytes % (auto) 0.5 %; Lymphocytes # (auto) 1.06 K/uL (1.20-3.40); Lymphocytes % (auto) 7.1 %; Mean Corpuscular Hemoglobin 29.9 pg (25.0-34.0); Mean Corpuscular Volume 85.6 fL (80.0-100.0); Mean Platelet Volume 9.7 fL (9.4-12.4); Monocytes % (auto) 16.2 %; Neutrophils # (auto) 11.32 K/uL (1.40-6.50); Neutrophils % (auto) 76.1 %; Platelet Count 251 K/uL (130-400); RDW Coefficient of Variation 11.9 % (11.5-14.5); RDW Standard Deviation 37.9 fL (36.4-46.3); Red Blood Count 3.61 M/uL (4.70-6.10); White Blood Count 14.86 K/ul (4.8-10.8)
[2024-10-04] MEDS: oxyCODONE HCL IR 5 MG TAB (IMMEDIATE RELEASE) PO PRN (07:36)
--- NOTE | 2024-10-04 08:49 | Urology Progress Note ---
Date of Service October 04, 2024 Assessment & Plan (1) Prostate cancer: Plan: 59 yo/M POD #1 s/p Robotic Laparoscopic-Assisted Radical Retropubic Prostatectomy with Dr. Rodriguez. - Doing well, progressing as expected - Afebrile with stable vitals - Post op lab work reviewed and as expected - Minimal pain - Tolerating clear liquid diet - will advance to full liquids, d/c IV fluids - Encouraged OOB ambulation - Incisions appropriate - Hobbs catheter intact, patent and draining clear yellow urine - Maintain Hobbs catheter upon discharge - Expected clinical course reviewed, all questions answered - Anticipate discharge to home later today or tomorrow if he continues to progress as expected - Will arrange outpatient follow-up for cathteter removal and pathology review Admission and Anticipated Discharge Date Admission Date: October 03, 2024 Subjective Patient seen and examined at bedside this morning. Reports episodes of hiccups overnight. He felt mild lightheadedness when sitting up yesterday evening, has not ambulated yet. Reports some incisional discomfort. Tolerating clear liquids. No nausea or vomiting. +Flatus. No fever or chills. Hobbs intact, draining clear yellow. Review of Systems Constitutional: as per Subjective / HPI Gastrointestinal: as per Subjective / HPI Genitourinary: + as per Subjective / HPI Physical Exam Constitutional: well developed and well nourished; no acute distress Respiratory: normal respiratory effort; no respiratory distress and no labored breathing Gastrointestinal (Abdomen): Inspection/Auscultation: abdomen normal to inspection Musculoskeletal: Head/Neck/Chest: normocephalic Skin: Incisions C/D/I with ferny Neurologic: moves all extremities and awake Psychiatric: Orientation: alert and oriented x 3 Genitourinary: Hobbs patent and draining clear yellow urine Results & Data Vital Signs (Past 12 Hours) Vital Signs Temp Pulse Resp BP BP Pulse Ox O2 Del Method 10/04/24 07:07 36.9 C 71 16 104/66 94 Room Air 10/04/24 04:01 36.8 C 76 16 103/68 97 Room Air 10/04/24 00:13 36.9 C 75 17 111/67 92 Room Air PG Care Time/CCT Total # of Minutes Spent Total Time Spent with Patient: Total time spent is greater than 50% in coordination of care (as documented) at patient's floor/unit and/or counseling patient: Coding Level of Care Code None Diagnoses Prostate cancer C61
[2024-10-04 12:25] VITALS: O2SAT 94
[2024-10-04] MEDS: MoRPHine SULFATE 4 MG/ML 1 ML CARP\\VIAL IV PRN (17:42)
[2024-10-04 19:55] VITALS: TEMP 98.4
[2024-10-04] MEDS: MELATONIN 3 MG TAB PO PRN (21:32)
[2024-10-05 06:16] LABS: Basophils # (auto) 0.03 K/uL (0.00-0.20); Basophils % (auto) 0.3 %; Eosinophils # (auto) 0.01 K/uL (0.00-0.50); Eosinophils % (auto) 0.1 %; Hematocrit (blood only) 29.6 % (42.0-52.0); Hemoglobin 10.2 g/dl (14.0-18.0); Immature Granulocytes # (auto) 0.05 K/uL (0.01-0.20); Immature Granulocytes % (auto) 0.5 %; Lymphocytes # (auto) 1.17 K/uL (1.20-3.40); Lymphocytes % (auto) 10.5 %; Mean Corpuscular Hemoglobin 29.7 pg (25.0-34.0); Mean Corpuscular Hgb Conc 34.5 g/dL (32.0-36.0); Mean Corpuscular Volume 86.3 fL (80.0-100.0); Mean Platelet Volume 9.4 fL (9.4-12.4); Monocytes # (auto) 1.51 K/uL (0.11-0.59); Monocytes % (auto) 13.6 %; Neutrophils # (auto) 8.33 K/uL (1.40-6.50); Platelet Count 239 K/uL (130-400); RDW Coefficient of Variation 12.1 % (11.5-14.5); RDW Standard Deviation 38.4 fL (36.4-46.3); Red Blood Count 3.43 M/uL (4.70-6.10)
[2024-10-05 06:32] LABS: BUN Creatinine Ratio 14.3 (10-20); Calcium 8.9 mg/dl (8.6-10.3); Creatinine Clr Calc Pharmacy 104.1 ml/min; Potassium 4.6 mmol/L (3.5-5.1)
[2024-10-05 07:31] VITALS: BP 110/73; PULSE 65
--- NOTE | 2024-10-05 07:59 | Urology Progress Note ---
Date of Service October 05, 2024 Assessment & Plan (1) Prostate cancer: Plan: Recovering appropriately s/p radical prostatectomy on 10/03/2024. He will have breakfast this morning, try ambulating and see how his pain is on oral medications. We will tentatively plan for discharge home today. Admission and Anticipated Discharge Date Admission Date: October 03, 2024 Subjective Feeling better this morning, feels like he was able to sleep Still having occasional pain, but also feeling better from that perspective today Tolerating a diet, no nausea vomiting No issues with Hobbs catheter Has been up out of bed a little bit, eager to do more this morning Results & Data Vital Signs (Past 12 Hours) Vital Signs Temp Pulse Resp BP Pulse Ox O2 Del Method 10/05/24 07:30 36.9 C 65 16 110/73 94 Room Air 10/04/24 21:15 Room Air PG Care Time/CCT Total # of Minutes Spent Total Time Spent with Patient: Total time spent is greater than 50% in coordination of care (as documented) at patient's floor/unit and/or counseling patient: Coding Level of Care Code None Diagnoses Prostate cancer C61
--- NOTE | 2024-10-05 08:01 | Discharge Summary ---
Date of Service October 05, 2024 Admission HPI Per Admitting Provider This is a 59-year-old male with history of prostate cancer. He underwent radical prostatectomy on 10/03/2024 and was admitted postoperatively in good condition. Admission Exam Per Admitting Provider General: Alert and oriented x 3 in no acute distress. Patient is well nourished and well kept. HEENT: Normocephalic Atraumatic. Inspection normal. Cranial Nerves 2-12 Grossly intact. Nares are clear. Neck is supple. Normal inspection of face. Normal inspection of neck. Neurologic: No deficits on inspection. Baseline for motor function and sensory. Psychologic: Normal affect. Respiratory: Nonlabored. No use of accessory muscles. No tachypnea or dyspnea. Cardiovascular: No tachycardia Skin: [place] and Dry. No rashes or visible lesions. Extremities: Moving without issues. No motor deficits on inspection Abdomen: Soft Non-distended. No rebound or guarding. Principal Diagnosis Prostate cancer Discharge Exam Well-appearing, NAD Abdomen soft, appropriate sean-incisional tenderness Hobbs catheter draining clear yellow urine Discharge Data Allergies Allergy/AdvReac Type Severity Reaction Status Date / Time No Known Allergies Allergy Verified 10/03/24 07:18 Procedures Performed Operation Date: 10/03/24 08:15 Actual Procedures p Robotic Assisted Laparoscopic Radical Retropubic Prostatectomy, Pelvic Lymph Node Dissection(Not Applicable) - Tony Rodriguez DO Hospital Course (1) Prostate cancer: He underwent radical prostatectomy on 10/03/2024. By 10/05, he was tolerating a diet, ambulating and pain was well-controlled on oral medications. He was discharged home in good condition. Total Time Total Time Spent Total Time Spent (In Minutes): 15 Discharge Plan Discharge Items Patient Disposition: Home - Self-Care Reason For Visit: Prostate Cancer Discharge Diagnosis: Prostate cancer Activity: Per Instructions section Lifting: No more than 10 pounds Bathing Comment: Okay to shower after discharge, no tub bath or soaking Sexual Activity: Wait until after follow-up appointment Exercise/Sports: Wait until after follow-up appointment Driving/Machine Use: No driving while taking prescription pain medication Non-emergency contact: Surgeon and Urologist Call non-emergency contact if: your pain is not controlled, you have a fever, your temperature is above 101, your wound has increased redness, your wound has increased drainage and your wound pain has increased Follow-up/Referrals: Tony Rodriguez DO [Physician] - 10/15/24 1:00 pm Coretta Chicas DO [Primary Care Provider] - Urology,Nurse [FAKE FOR SCHEDULES] - 10/11/24 9:15 am (Staple and catheter removal) Diet: Regular Addtl Attending Provider Instructions: Please take all medications as prescribed and keep all follow-ups as scheduled. Please call our office at [phone] with any questions, concerns or need to reschedule appointments for any reason. We are happy to assist you. We have sent an antibiotic to your pharmacy of choice. Please begin antibiotic as prescribed the day BEFORE your scheduled voiding trial at [facility]. Please continue antibiotic every 12 hours through the day AFTER your voiding trial. Activity: We recommend having someone with you for the first few days after surgery to help care for you. For the first 2 weeks after surgery, we would like you to get up and walk around your house. However, we recommend limit physical activity that would increase your heart rate. This will allow your body to rest and heal. Take naps if you feel tired. Don't lift anything heavier than 10 pounds, mow the law or ride a bicycle until your follow-up appointment. Please avoid long car rides. Home Care: Unless directed otherwise, drink 6 to 8 glasses of water a day (enough to keep your urine light colored). This will also help keep a healthy flow of urine. We recommend using a stool softener for the first two weeks to avoid constipation. Hobbs Catheter or Suprapubic Catheter care: Keep the catheter well secured with either a leg back or leg strap with large bag. Empty your bag when it's about half full. You may notice some blood in the bag. This is normal after surgery and while the catheter is in place. Use mild soap (such as Dove or Dial) and water to wash the catheter and the head of your penis daily, or more frequently if needed. Return to your normal diet, we encourage good protein intake to promote heal ing. You may shower as normal. Please avoid tub baths or soaking until catheter removed and incisions well healed. Wearing sweat pants while you have the catheter is recommended, they will be more comfortable. Follow-up Your follow up appointments for having your catheter removed, and follow up with your physician should already be scheduled. If you have any questions regarding this, please contact our office. Your final pathology report will be discussed at your physician follow-up appointment. Call [facility] at [phone] right away if you have any of the following: Chest pain or trouble breathing (call 911 or go to the hospital) Fever of 101F or higher, uncontrolled vomiting Heavy bleeding, clots, or bright red blood from the catheter Catheter that falls out or stops draining Foul-smelling discharge from your catheter Redness, swelling, warmth, or increased pain at your incision site Drainage, pus, or bleeding from your incision Pending Studies at Discharge: Yes (pathology) Stand-Alone Forms: My [facility] [employer], Smoking Cessation Medications and DC Order Prescriptions: New ciprofloxacin HCl 500 mg tablet 500 mg PO BID Qty: 6 0RF Rx Instructions: start 1 day prior to catheter removal oxycodone-acetaminophen [Percocet] 5-325 mg tablet 1 tab PO TID PRN (Reason: pain) Qty: 7 0RF docusate sodium [Colace] 100 mg capsule 100 mg PO BID Qty: 60 0RF Rx Instructions: Take twice daily for 2 weeks, then as needed for constipation. Continued meclizine 12.5 mg tablet 12.5 mg PO TID PRN (Reason: prn) cyclobenzaprine 5 mg tablet 5 mg PO TID PRN (Reason: prn) cholecalciferol (vitamin D3) [Vitamin D3] 25 mcg (1,000 unit) Capsule 5,000 mcg PO 2XWK Rx Instructions: Tues/Sat melatonin 10 mg Tablet 10 - 15 mg PO HS PRN (Reason: Sleep) MCT Oil 7.7 kcal/mL Oil 5 ml PO DAILY PRN (Reason: prn) diclofenac sodium 1 % Gel 4 g TOPICAL DAILY PRN (Reason: prn) Krill Oil (Rochert 3 and 6) 1000-130(40-80) mg Capsule 1 cap PO QAM PRN (Reason: prn) cyanocobalamin (vitamin B-12) [Vitamin B-12] 500 mcg Tablet 500 mcg PO QPM acetaminophen [Tylenol Extra Strength] 500 mg tablet 1,000 mg PO Q8H PRN (Reason: prn) Rx Instructions: OTC lidocaine 5 % adhesive patch,medicated 1 patch transdermal QAM PRN (Reason: prn) Rx Instructions: Apply to pain in right side of neck Discharge Orders: Discharge Order (Routine); Ordered 10/05/24 Ordered By: Sanjeev Forte Admission Data Admit Date/Time: 10/03/24 11:56 Attending Provider: Tony Rodriguez Admit Provider: Tony Rodriguez Primary Care Provider: Coretta Chicas Coding Level of Care Code 35946 IN/OBS DISCH 30 MIN/LESS Diagnoses Prostate cancer C61
[2024-10-05] MEDS: CHOLECALCIFEROL 125 MCG (5,000 UNITS) TAB PO SCH (09:00)
== END 2024-10-05 12:55 | disposition home or self-care (01) ==
LOC: ASU 06:40 → 3E 11:56 → INTOOBSV 11:56